=== PATIENT | female | born 1990 | race Caucasian/White ===

== ENCOUNTER 2019-03-19 14:57 | Emergency (ER) | payer OTHER ==
[~2019-03-19] VITALS: Ht 157.5 cm; Wt 54.6 kg
[~2019-03-19 14:57] MED LIST: PT DENIES
[2019-03-19 15:00] VITALS: Ht 157.5 cm; Wt 54.6 kg
[2019-03-19] MEDS ORDERED: ONDANSETRON (ODT) 4 MG TAB ODT STA ×2 (16:28→21:04)
[2019-03-19] MEDS ORDERED: NICOTINE (21 MG/24 HR) PATCH TRANSDERM ONE (17:30)
[2019-03-20] MEDS ORDERED: IBUPROFEN 800 MG TAB PO ONE
[2019-03-20] MEDS ORDERED: ONDANSETRON (ODT) 4 MG TAB ODT ONE (01:06)
[2019-03-20] MEDS ORDERED: ACETAMINOPHEN 325 MG TAB PO ONE (02:30)
[2019-03-20 08:15] VITALS: BP 140/86; PULSE 90; RESP 16
== END 2019-03-20 08:30 ==
LOC: E/R 14:57
DX: R45.851 Suicidal ideations (principal); F17.210 Nicotine dependence, cigarettes, uncomplicated
CPT/HCPCS: 36415; 80053; 80307; 81001; 84703; 85025; Z7502; Z7610; 99285